=== PATIENT | male | born 1945 | race Caucasian/White ===

== ENCOUNTER 2017-04-26 01:15 | Emergency (ER) | payer MEDICARE, OTHER ==
--- NOTE | 2017-04-26 01:35 | ERNOTE ---
Neuro HPI ER Record Presenting Symptoms: weakness, confusion Time Seen by Provider: 04/26/17 01:15 Source: patient, EMS Exam Limitations: clinical condition Allergies/Adverse Reactions: Allergies Allergy/AdvReac Type Severity Reaction Status Date / Time penicillin G Allergy Severe Verified 02/19/14 10:31 Home Medications: HOME MEDICATIONS Levothyroxine Sodium [Levothyroxine (Synthroid)] 50 mcg PO DAILY 09/26/12 [Last Taken Unknown] Meclizine HCl [Antivert] 25 mg PO QID 09/26/12 [Last Taken Unknown] Simvastatin [Simvastatin (Zocor)] 40 mg PO DAILY 09/26/12 [Last Taken Unknown] Temazepam [Restoril (Temazepam)] 30 mg PO HS 09/26/12 [Last Taken Unknown] Alprazolam [Xanax] 0.25 mg PO HS PRN 04/26/17 [Last Taken Unknown] Aspirin 325 mg PO DAILY 04/26/17 [Last Taken Unknown] HYDROcodone/ACETAMINOPHEN [[place] 5-325 Tablet] 1 tab PO Q4H PRN 04/26/17 [Last Taken Unknown] Nitroglycerin 0.4 mg SL Q5MIN PRN 04/26/17 [Last Taken Unknown] Prazosin HCl [Minipress] 1 mg PO DAILY 04/26/17 [Last Taken Unknown] risperiDONE [Risperdal] 0.5 mg PO HS 04/26/17 [Last Taken Unknown] - History of Present Illness Narrative: Pt brought in by EMS with report that he was unresponsive at home. He had taken nitro at home and a pain pill earlier this evening. EMS report he was unresponsive except to painful stimuli during transport. Upon arrival he admits to left chest pain and "weakness". Onset: cannot confirm onset Severity: mild - Character of Deficits New weakness: Present: general (diffuse) Additional Deficits: Present: weakness Baseline Cognition: Present: alert, oriented x 4 Associated Symptoms: Reports: chest pain, altered mental status, decreased responsiveness Review of Systems - Review of Systems Constitutional: Absent: recent illness EYE: Present: no symptoms reported ENT: Present: no symptoms reported Respiratory: Present: shortness of breath - chronic, no more than usual Cardiology: Absent: chest pain Gastrointestinal/Abdominal: Absent: nausea, vomiting Genitourinary: Absent: no symptoms reported Musculoskeletal: Absent: no symptoms reported Skin: Present: other - pain in left nipple Neurological: Present: See HPI Endocrine: Present: no symptoms reported Hematologic/Lymphatic: Present: no symptoms reported Psych: Present: no symptoms reported - Patient's Past Medical History Patient History - Medical: Anxiety, Hypothyroidism Patient History - Cardiac/Respiratory: COPD, Hyperlipidemia Patient History - Cancer: Other - oral Patient History - Surgical Procedures: Other - oral surgery removal and repair - Family History Mother Family History - Medical: Family History - Cardiac/Respiratory: No pertinent hx Family History - Cancer: Colon Physical Exam - Physical Exam General Appearance: Present: wd/wn, lethargic Head Exam: Present: normal inspection, no evidence of injury Ears, Nose, Throat: Present: dry mucous membranes, other - skin graft left mandibular area. Neck: Present: nontender Respiratory: Present: no respiratory distress, no accessory muscle use, decreased breath sounds Cardiovascular/Chest: Present: no murmur - distant heart sounds, bradycardia Gastrointestinal/Abdominal: Present: nontender, nondistended, soft, abnormal bowel sounds - hypoactive Extremity Exam: Present: normal inspection, non-tender, no edema Skin Exam: Present: normal color, warm/dry Lymphatic Exam: Present: no adenopathy [place] Coma Scale - Assess Eye Opening: Spontaneous Motor: Localizes to Pain Verbal: Confused - Total Coma Scale Total: 13 ED Progress - Results and Orders Patient's Lab Results:: I have reviewed the patient's lab results. Results and Orders: Laboratory Tests 04/26/17 04/26/17 04/26/17 01:26 01:26 01:56 WBC 11.8 H Hgb 14.4 Hct 40.6 L Plt Count 242 Sodium 143 H Potassium 3.7 Chloride 106 Carbon Dioxide 28.8 BUN 26 H Creatinine 0.91 Random Glucose 127 H Calcium 8.9 Total Bilirubin 0.5 AST 16 ALT 29 Alkaline Phosphatase 112 Troponin I Less than 0.017 Total Protein 6.8 Albumin 3.7 Laboratory Tests 04/26/17 03:15 Urine Color Dark yellow Urine Appearance Clear Urine pH 6.0 Ur Specific [place] 1.025 Urine Protein Negative Urine Glucose (UA) Negative Urine Ketones Negative Urine Blood 5 H Urine Nitrate Negative Urine Bilirubin Negative Urine Urobilinogen Normal Ur Leukocyte Esterase Negative Urine RBC None seen Urine WBC None seen Ur Epithelial Cells None seen Urine Bacteria None seen Urine Culture Comments No culture indicated - Vital Signs Patient's Vital Signs:: I have reviewed the patient's vital signs. - EKG EKG: RBBB - incomplete, other - sinus bradycardia - 57. EKG read: Interp. by me - X-Ray X-Ray #1 X-Ray: chest Interpretation: Interp. by me X-ray Comments: chronic changes of COPD, possible scarring RML/ RLL - CT/Ultrasound CT/Ultrasound Narrative: slight hyperattenuation along tetorium cerebelli likely dural calcification no hemorrhage no mass mild atrophy. atherosclerosis chronic appearing white matter changes mild mucosal thickening ethmoid air cells - Progress/Reassessment Progress:: Improved Progress Note-Subjective: 04/26/17 02:15 Pt now awake, alert and conversant. Describes his chest pain as tenderness of his left nipple. His PCP has seen this and tried antibiotic therapy without any improvement. left nipple is tender. No erythema, no swelling or hypertrophy. Departure Clinical Impression: Mental status, decreased, Breast pain in male - Departure Disposition: Home self-care Condition: Good Additional Instructions: See Dr. Kilgore about further evaluation of your breast pain. Referrals: Anastacio Kilgore MD [Primary Care Provider] -
[2017-04-26 01:38] LABS: Hematocrit 40.6 % (42.0-52.0); Hemoglobin 14.4 gm/dL (13.5-18.0); Mean Corpuscular Hemoglobin 32.3 pg (27-31); Mean Corpuscular Hgb Conc 35.5 g/dl (32-36); Mean Platelet Volume 8.6 fl (6.0-9.5); Neutrophil # 7.5 K/mm3 (1.3-6.0); Platelet Count 242 K/mm3 (150-450); Red Blood Count 4.46 M/mm3 (4.7-6.0); Red Cell Distribution Width 12.6 % (11.5-14.0); White Blood Count 11.8 K/mm3 (4.0-10.5)
[2017-04-26 01:50] LABS: Albumin * 3.7 gm/dl (3.4-5.0); Anion Gap 11.9 mmol/L (6.8-13.8); BUN/Creatinine Ratio 28.6 (9.0-21.6); Bilirubin, Total 0.5 mg/dL (0.0-1.1); Ca. Corrected For Albumin 8.8 mg/dL (8.4-10.2); Calcium * 8.9 mg/dL (7.9-10.9); Carbon Dioxide 28.8 mmol/L (24-32.6); Potassium 3.7 mmol/L (3.4-4.6); Total Protein 6.8 gm/dL (6.2-8.2)
[2017-04-26 03:22] LABS: Urine Bilirubin Negative (NEGATIVE); Urine Ketone Negative (NEGATIVE); Urine Nitrite Negative (NEGATIVE); Urine Protein Negative (NEGATIVE); Urine Specific Gravity 1.025 SP.GR. (1.005-1.030); Urine Urobilinogen Normal (NORMAL)
[2017-04-26 03:28] LABS: Urine Appearance Clear; Urine Bacteria None Seen; Urine Blood 5 /ul (NEGATIVE); Urine Color Dark Yellow; Urine RBC None Seen /hpf (0-5); Urine WBC None Seen /hpf (0-5)
[2017-04-26 04:14] VITALS: BP 125/58
== END 2017-04-26 03:45 | disposition home or self-care (01) ==
LOC: ER 01:15
DX: R40.4 Transient alteration of awareness (principal); N64.4 Mastodynia; E03.9 Hypothyroidism, unspecified; J44.9 Chronic obstructive pulmonary disease, unspecified; E78.5 Hyperlipidemia, unspecified; Z85.819 Personal history of malignant neoplasm of unspecified site of lip, oral cavity, and pharynx; F41.9 Anxiety disorder, unspecified